=== PATIENT | male | born 1990 | race Caucasian/White ===

== ENCOUNTER 2017-04-23 05:32 | Day surgery (SDC) | payer BC ==
[~2017-04-23] VITALS: Ht 177.8 cm; Wt 79.4 kg
--- NOTE | ~2017-04-23 | O ---
[facility] [place] [address] OPERATIVE REPORT Name: TODD ELLIOTTOB Room #: DEP [facility]..#: [id number] Admission: 04/23/17 Attend Phys: Jason Porter MD Discharge: 04/23/17 Date of : 89 Report #: [id number] THIS REPORT FOR: //name// CC: Jones Porter DATE OF SERVICE: 04/23/2017 PREOPERATIVE DIAGNOSIS: Chronic tonsillitis with tonsillar hypertrophy. POSTOPERATIVE DIAGNOSIS: Chronic tonsillitis with tonsillar hypertrophy. OPERATIVE PROCEDURE: Tonsillectomy. ANESTHESIA: General endotracheal. PROCEDURE IN DETAIL: The patient was taken to the operating room and placed in a supine position. General anesthesia was induced by endotracheal intubation. Once adequate general anesthesia was obtained, the patient was draped in a sterile manner. A Michelle-Sea mouth gag was placed in the patient's mouth and the tongue was deviated upward. The right tonsil was grasped and deviated towards midline. An incision was placed in the anterior tonsillar pillar using the Bovie electrocautery and the plane between tonsillar capsule and tonsillar fossa was established. Dissection was carried out in this plane using the Bovie and hemostasis was achieved during the dissection. Dissection was carried out from superior to inferior. The inferior pole was incised. The posterior tonsillar mucosa was incised. The tonsil was removed and sent to pathology. The left tonsil was removed in exactly the same manner. The area was then irrigated with normal saline. Hemostasis was verified in the tonsillar beds. The mouth gag was removed. The patient tolerated the procedure well. Blood loss was less than 5 mL. The patient was then awoken and taken to the recovery room in stable condition for postoperative monitoring. <ELECTRONICALLY SIGNED> By: Jason Porter MD 05/10/17 1329 [id number] [id number] Jason Porter MD /nt
--- NOTE | ~2017-04-23 | H ---
[facility] [place] [address] HISTORY AND PHYSICAL Name: NORA ELLIOTT Room #: 150-6 [facility] M.R.#: [id number] Admission: 04/23/17 Attend Phys: Jason Porter MD Discharge: Date of : 89 Report #: [id number] THIS REPORT FOR: //name// CC: FAM unknown Jason Porter HISTORY OF PRESENT ILLNESS: The patient has been having problems with his tonsils. He had a case of strep throat in 02/2016 with sore throat, nausea, headache, difficulty swallowing. He was strep culture positive and treated with a course of antibiotics. He has had 4 more episodes over 2017 and each time he goes to urgent care, he is strep positive on culture. He is usually treated with antibiotics. PAST MEDICAL HISTORY: Otherwise, not significant. MEDICATIONS: Include Lexapro and Truvada. ALLERGIES: He has no known drug allergies. PHYSICAL EXAMINATION: His nose is clear. His tonsils are 3+ enlarged with deep crypts, but no signs of infection. He does not have upper cervical adenopathy. He has a very small node in the posterior triangle at the base of the right neck. IMPRESSION: Chronic tonsillitis with tonsillar hypertrophy. PLAN: Tonsillectomy. <ELECTRONICALLY SIGNED> By: Jason Porter MD 04/23/17 0857 [id number] 1547 Jason Porter MD /nt
--- NOTE | ~2017-04-23 | S ---
[facility] [place] [address] SURGICAL PATH RPT PROCEDURE Name: NORA ELLIOTT Room #: DEP [facility] M.R.#: [id number] Admission: 04/23/17 Date of : 89 Discharge: 04/23/17 Report #: [id number] Path Case #: [id number] PATHOLOGY REPORT COLLECTION DATE: 04/23/2017 RECEIVED DATE: 04/23/2017 SUBMITTING PHYS: Dr. Jason Porter OTHER PHYS: Dr. Jones Herzog SPECIMEN(S) RECEIVED: A.Right tonsil B.Left tonsil * * * * * * * * * * * * FINAL DIAGNOSIS: A. Tonsil, "right", tonsillectomy: - Acutely inflamed squamous epithelium overlying lymphoid tissue with reactive hyperplasia. B. Tonsil, "left", tonsillectomy: - Acutely inflamed squamous epithelium overlying lymphoid tissue with reactive hyperplasia. PATHOLOGIST: Kimberlee Cartwright M.D. REPORT ELECTRONICALLY SIGNED BY: Kimberlee Cartwright M.D. DATE/TIME: 04/24/2017 14:11 * * * * * * * * * * * * GROSS PATHOLOGY: A. Received in formalin, labeled "Nora Elliott right tonsil," is a tonsil measuring 3.3 x 2.3 x 1.7 cm in maximum dimensions. The mucosal surface is angel with the typical crypts identified. Sectioning reveals lobulated, homogeneous light angel cut surfaces with no grossly identifiable lesions. [employer] tissue is submitted in cassette A1. B. Received in formalin, labeled "Nora Rosalind, left tonsil," is a tonsil measuring 3.7 x 2.3 x 2.2 cm in maximum dimensions. The mucosal surface is angel with the typical crypts identified. Sectioning reveals lobulated, homogeneous light angel cut surfaces with no grossly identifiable lesions. [employer] Super[employer] tissue is submitted in cassette B1. (CAA; 04/23/2017) CLINICAL HISTORY: Chronic tonsillitis [facility] [place] [address] SURGICAL PATH RPT PROCEDURE Name: NORA ELLIOTT Room #: DEP [facility] M.R.#: [id number] Admission: 04/23/17 Date of : 89 Discharge: 04/23/17 Report #: [id number] Path Case #: [id number] INITIAL CPT CODE(S): A; 50444 B; 82255 Professional services performed by [facility] at [place] [address], [place] [address] Technical services performed by [facility] at [address] [place] [address], [place] [address]. [facility] [address] [place] [address] PHONE: [phone] DIRECTOR: James Santos M.D. * * * END OF REPORT * * *
[~2017-04-23 05:32] MED LIST: ESCITALOPRAM OX20 MG PO; TRUVADA 200 MG1 EACH PO
[2017-04-23 07:46] VITALS: BP 120/73
[2017-04-23 08:42] VITALS: BP 120/73
== END 2017-04-23 10:30 | disposition home or self-care (01) ==
LOC: TBA 05:32 → OR 05:32
DX: J03.90 Acute tonsillitis, unspecified (principal); J35.01 Chronic tonsillitis; F32.9 Major depressive disorder, single episode, unspecified; F41.9 Anxiety disorder, unspecified; Z98.890 Other specified postprocedural states
CPT/HCPCS: 50010; 50101; 62110; 62900; 64032; 70005